=== PATIENT | male | born 1975 | race Two or more races ===

== ENCOUNTER 2016-11-13 06:42 | Emergency (ER) | payer MEDICAID ==
--- NOTE | 2016-11-13 06:47 | EDPHY ---
H & P Time Seen by Provider: 11/13/16 06:46 HPI/ROS: CHIEF COMPLAINT: I fell down HISTORY OF PRESENT ILLNESS: Patient was recently at detox for 6 days for cocaine and heroin. Currently homeless. He says he was walking today pulling his large roller suitcase when he got lightheaded and fell down. Only complaint per EMS was that he called dispatch because he "could not talk." Pre- hospital glucose was 105. The patient tells me he thinks he might have blacked out. He does not remember falling. He remembers getting lightheaded and then waking up on the ground. He says that he injured his back and complains of back from his neck all the way through his tailbone. This is not associated with weakness or numbness in extremities. REVIEW OF SYSTEMS: Eye: no change in vision ENT: no sore throat Cardiac: No chest pain Pulmonary: no cough or SOB Abdomen: no vomiting, diarrhea, abdominal pain Musculoskeletal: HPI Skin: no rash Neuro: no headache Constitutional: no fever : no urinary symptoms A comprehensive 10 point review of systems is otherwise negative aside from elements mentioned in the history of present illness. PAST MEDICAL HISTORY: "Psychological problems "the patient has difficulty elaborating on that details. However with further questioning he says he has bipolar disorder not on medication. Social history: Heavy marijuana smoker General Appearance: Alert and conversant, cooperative. Eyes: No scleral icterus. ENT, Mouth: Normal mucous membranes. No tongue laceration or abrasion. Respiratory: Normal respiratory effort, breath sounds equal, lungs are clear to auscultation. Cardiovascular: Regular rate and rhythm. No murmur. Gastrointestinal: Abdomen is soft and non tender. Neurological: Alert and oriented x3. Normally conversant. Face symmetric, normal movement and sensation in all extremities. Skin: Warm and dry, no rashes. Musculoskeletal: No extremity tenderness. He has midline tenderness in the lower C-spine all the way through his tailbone. However when I set him up he starts crying and shaking in the exam is difficult to conduct. Psychiatric: Denies suicidal or homicidal ideation. Not hallucinating. Very distractible. Emergency Department course/MDM: EKG, chemistries, imaging of his spine. 719: Cervical spine CT per Dr. Joy shows no evidence of acute traumatic injury. 855: Cervical spine cleared clinically, results discussed with the patient, he is watching a video on his smart phone. Stable for discharge. Likely vasovagal syncope with back injury which is not medically or surgically emergent. Constitutional: Initial Vital Signs Temperature (C) 36.7 C 11/13/16 06:45 Heart Rate 112 H 11/13/16 06:45 Respiratory Rate 18 11/13/16 06:45 Blood Pressure 135/91 H 11/13/16 06:45 O2 Sat (%) 93 11/13/16 06:45 O2 Delivery Mode Room Air Allergies/Adverse Reactions: No Known Allergies Allergy (Unverified 11/13/16 06:54) Home Medications: Medication Instructions Recorded NK [No Known Home Meds] 11/13/16 Medical Decision Making - Diagnostics EKG Interpretation: 12-lead EKG interpreted by me; official reading is in trace master. My interpretation is sinus rhythm rate 95 with left atrial abnormality otherwise normal. Imaging Results: Thoracic and lumbar spine x-rays personally interpreted as negative for trauma. Differential Diagnosis: Differential diagnosis considered for syncope including but not limited to vasovagal syncope, arrhythmia, dehydration, and blood loss. - Data Points Laboratory Results: Laboratory Results 11/13/16 07:25 11/13/16 07:25 11/13/16 11/13/16 07:25 07:25 WBC 13.63 10^3/uL H 10^3/uL (3.80-9.50) RBC 5.15 10^6/uL 10^6/uL (4.40-6.38) Hgb 15.2 g/dL g/dL (13.7-17.5) Hct 45.9 % % (40.0-51.0) MCV 89.1 fL fL (81.5-99.8) MCH 29.5 pg pg (27.9-34.1) MCHC 33.1 g/dL g/dL (32.4-36.7) RDW 12.2 % % (11.5-15.2) Plt Count 238 10^3/uL 10^3/uL (150-400) MPV 9.4 fL fL (8.7-11.7) Neut % (Auto) 72.9 % % (39.3-74.2) Lymph % (Auto) 17.8 % % (15.0-45.0) [place] % (Auto) 5.8 % % (4.5-13.0) Eos % (Auto) 0.5 % L % (0.6-7.6) Baso % (Auto) 1.1 % % (0.3-1.7) Nucleat RBC Rel Count 0.0 % % (0.0-0.2) Absolute Neuts (auto) 9.93 10^3/uL H 10^3/uL (1.70-6.50) Absolute Lymphs (auto) 2.43 10^3/uL 10^3/uL (1.00-3.00) Absolute Monos (auto) 0.79 10^3/uL 10^3/uL (0.30-0.80) Absolute Eos (auto) 0.07 10^3/uL 10^3/uL (0.03-0.40) Absolute Basos (auto) 0.15 10^3/uL H 10^3/uL (0.02-0.10) Absolute Nucleated RBC 0.00 10^3/uL 10^3/uL (0-0.01) Immature Gran % 1.9 % H % (0.0-1.1) Immature Gran # 0.26 10^3/uL H 10^3/uL (0.00-0.10) Sodium 138 mEq/L mEq/L (134-144) Potassium 4.7 mEq/L mEq/L (3.5-5.2) Chloride 105 mEq/L mEq/L (97-110) Carbon Dioxide 19 mEq/l L mEq/l (22-31) Anion Gap 14 mEq/L mEq/L (8-16) BUN 12 mg/dL mg/dL (7-23) Creatinine 0.8 mg/dL mg/dL (0.7-1.3) Estimated GFR > 60 Glucose 94 mg/dL mg/dL (70-100) Calcium 10.2 mg/dL mg/dL (8.5-10.4) Creatine Kinase 37 IU/L IU/L (0-224) Departure - Departure Disposition: Home, Routine, Self-Care Clinical Impression: Syncope and collapse Back pain Qualifiers: Back pain location: low back pain Chronicity: acute Back pain laterality: midline Sciatica presence: without sciatica Qualified Code(s): M54.5 - Low back pain Condition: Good Instructions: Syncope (ED), Acute Low Back Pain (ED) Referrals: [facility],. [Clinic] - As per Instructions
[2016-11-13 06:54] VITALS: TEMP 98.1
[2016-11-13 07:32] LABS: % IMMATURE GRANULYOCYTES 1.9 % (0.0-1.1); ABSOLUTE IMMATURE GRANULOCYTES 0.26 10^3/uL (0.00-0.10); ADD DIFF? NO; ADD MORPH? NO; ADD SCAN? NO; ATYPICAL LYMPHOCYTE FLAG 20 (0-99); FRAGMENT RBC FLAG 0 (0-99); HEMATOCRIT 45.9 % (40.0-51.0); HEMOGLOBIN 15.2 g/dL (13.7-17.5); LEFT SHIFT FLG 10 (0-99); LIPEMIA HEMOLYSIS FLAG 80 (0-99); MEAN CELL HEMOGLOBIN 29.5 pg (27.9-34.1); MEAN CELL HEMOGLOBIN CONCENTR. 33.1 g/dL (32.4-36.7); MEAN CELL VOLUME 89.1 fL (81.5-99.8); MEAN PLATELET VOLUME 9.4 fL (8.7-11.7); PLATELET CLUMPS FLAG 40 (0-99); PLATELET COUNT 238 10^3/uL (150-400); RED BLOOD CELL COUNT 5.15 10^6/uL (4.40-6.38); RED CELL DISTRIBUTION WIDTH 12.2 % (11.5-15.2)
--- NOTE | 2016-11-13 07:57 | CPEKG ---
Heart Rate: 95 RR Interval: 632 P-R Interval: 136 QRSD Interval: 82 QT Interval: 344 QTC Interval: 433 P [place]: 74 QRS [place]: 76 T Wave [place]: 49 EKG Severity - ABNORMAL ECG - EKG Impression: SINUS RHYTHM EKG Impression: LEFT ATRIAL ABNORMALITY Electronically Signed By: Khanh Duncan 13-Nov-2016 08:14:05
[2016-11-13 08:41] LABS: ANION GAP 14 mEq/L (8-16); CALCIUM 10.2 mg/dL (8.5-10.4); CARBON DIOXIDE 19 mEq/l (22-31); CHLORIDE 105 mEq/L (97-110); CREATININE 0.8 mg/dL (0.7-1.3); GLOMERULAR FILTRATION RATE > 60; GLUCOSE 94 mg/dL (70-100); POTASSIUM 4.7 mEq/L (3.5-5.2); SODIUM 138 mEq/L (134-144)
[2016-11-13 09:06] VITALS: BP 132/84; PULSE 104; RESP 16; O2SAT 96
== END 2016-11-13 09:06 | disposition home or self-care (01) ==
LOC: EDUNIT#
DX: S39.92XA Unspecified injury of lower back, initial encounter (principal); R55 Syncope and collapse; W18.39XA Other fall on same level, initial encounter; Y99.8 Other external cause status; Y93.01 Activity, walking, marching and hiking

== ENCOUNTER 2017-06-06 08:32 | Emergency (ER) | payer MEDICAID ==
[2017-06-06] MEDS ORDERED: NS 1,000 ML IV ONE (09:44)
[2017-06-06] MEDS ORDERED: ONDANSETRON 4 MG/2 ML VIAL IVP ONE (09:44)
[2017-06-06] MEDS ORDERED: HYDROmorphONE/DILAUDID 2 MG/ML INJ IVP ONE (09:44)
--- NOTE | 2017-06-06 09:44 | EDPHY ---
H & P Time Seen by Provider: 06/06/17 08:50 HPI/ROS: Chief complaint. Back pain and sciatica HPI. 42-year-old male presents emergency department with 2 day history of low back pain. He does have a history of low back pain is had previous cortisone injections but no surgery. 2 days ago at work he felt a click in his left low back. It has continued and now today he has weakness to both legs and feels that they want support his weight. He has pain radiating down the backs of both eyes. He feels he has decreased sensation. No bowel symptoms. He is able to control his urine but has a strong urine smell. While he has had low back pain in the past he has not had leg weakness previously. He has been using IV heroin for the past month and a half. He does not think he has been running a fever. No chest discomfort or trouble breathing. ROS Constitutional. no fever/chills, no weakness Eyes. no problems with vision ENT. no sore throat, no nasal drainage Cardiovascular. no chest pain Respiratory. no shortness of breath, no cough Abdominal. no abdominal pain, no nausea/vomiting, no diarrhea . Strong urine smell MS. Low back pain with sciatica and leg weakness Skin. no rash Lymph. no swollen glands Neuro. Difficulty walking secondary to back pain and leg weakness Past Medical/Surgical History: Low back pain, bipolar, alcoholism, IVDA Social History: Single, daily smoker, no recent alcohol Smoking Status: Heavy smoker Physical Exam: General Appearance: Alert well-developed male mild distress vital signs stable Eyes: Pupils equal and round no pallor or injection. ENT, Mouth: Mucous membranes are moist. Respiratory: There are no retractions, lungs are clear to auscultation. Cardiovascular: Regular rate and rhythm. Gastrointestinal: Abdomen is soft and nontender, no masses, bowel sounds normal. Neurological: Awake and alert, sensory and motor exams grossly normal. Deep tendon reflexes decreased on the right normal on the left. Great toe strength present but maybe bilaterally somewhat weak. Diffuse altered sensation but not particular saddle anesthesia Skin: Warm and dry, no rashes. Musculoskeletal: Neck is supple nontender. No thoracic discomfort. He has lower lumbar disc diffuse discomfort. No surface swelling or erythema. Extremities symmetrical, full range of motion. Psychiatric: Patient is oriented X 3, there is no agitation. Constitutional: Initial Vital Signs Temperature (C) 37 C 06/06/17 08:35 Heart Rate 78 06/06/17 08:35 Respiratory Rate 16 06/06/17 08:35 Blood Pressure 143/89 H 06/06/17 08:35 O2 Sat (%) 98 06/06/17 08:35 O2 Delivery Mode Room Air Allergies/Adverse Reactions: No Known Allergies Allergy (Unverified 11/13/16 06:54) Home Medications: Medication Instructions Recorded predniSONE 40 mg PO DAILY #8 tablet 06/06/17 Medical Decision Making - Diagnostics Imaging Results: Imaging Impressions Orbit X-Ray 06/06/17 10:35 Impression: Patient is clear for MRI. MRI of the lumbar spine shows no evidence for abscess. No evidence for cauda equina syndrome. 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 Procedures: IV normal saline. Dilaudid for pain. ED Course/Re-evaluation: On re-evaluation patient does have slightly wide gait. He is able to walk however I consulted and discussed the case with Dr. Meeks who reviewed the patient's MRI. He recommends Medrol Dosepak and follow up in the office. He does not feel further workup is necessary in the emergency department Prior to my re-evaluation of the patient 1:25 p.m. The patient is found to be injecting heroin in the bathroom. He tried to get the help of his IV apart for access and there is brown substance in the IV. [place] [employer] is called At 1:25 p.m. I discussed the imaging studies with the patient. We discussed treatment plan including criteria for return and recommendation for follow-up and further evaluation. He expresses understanding and agreement Differential Diagnosis: I considered cauda equina syndrome. As he is an IV drug abuser I considered epidural abscess as well. This appears to be herniated disc but no evidence for abscess or cauda equina syndrome - Data Points Laboratory Results: Laboratory Results 06/06/17 10:50 06/06/17 10:50 06/06/17 06/06/17 10:50 10:50 WBC 10.02 10^3/uL H 10^3/uL (3.80-9.50) RBC 5.18 10^6/uL 10^6/uL (4.40-6.38) Hgb 15.5 g/dL g/dL (13.7-17.5) Hct 45.5 % % (40.0-51.0) MCV 87.8 fL fL (81.5-99.8) MCH 29.9 pg pg (27.9-34.1) MCHC 34.1 g/dL g/dL (32.4-36.7) RDW 12.3 % % (11.5-15.2) Plt Count 266 10^3/uL 10^3/uL (150-400) MPV 9.2 fL fL (8.7-11.7) Neut % (Auto) 70.9 % % (39.3-74.2) Lymph % (Auto) 20.5 % % (15.0-45.0) [place] % (Auto) 7.3 % % (4.5-13.0) Eos % (Auto) 0.2 % L % (0.6-7.6) Baso % (Auto) 0.8 % % (0.3-1.7) Nucleat RBC Rel Count 0.0 % % (0.0-0.2) Absolute Neuts (auto) 7.11 10^3/uL H 10^3/uL (1.70-6.50) Absolute Lymphs (auto) 2.05 10^3/uL 10^3/uL (1.00-3.00) Absolute Monos (auto) 0.73 10^3/uL 10^3/uL (0.30-0.80) Absolute Eos (auto) 0.02 10^3/uL L 10^3/uL (0.03-0.40) Absolute Basos (auto) 0.08 10^3/uL 10^3/uL (0.02-0.10) Absolute Nucleated RBC 0.00 10^3/uL 10^3/uL (0-0.01) Immature Gran % 0.3 % % (0.0-1.1) Immature Gran # 0.03 10^3/uL 10^3/uL (0.00-0.10) Sodium 139 mEq/L mEq/L (135-145) Potassium 4.7 mEq/L mEq/L (3.5-5.2) Chloride 102 mEq/L mEq/L (97-110) Carbon Dioxide 20 mEq/l L mEq/l (22-31) Anion Gap 17 mEq/L H mEq/L (8-16) BUN 13 mg/dL mg/dL (7-23) Creatinine 0.7 mg/dL mg/dL (0.7-1.3) Estimated GFR > 60 Glucose 113 mg/dL H mg/dL (70-100) Calcium 9.3 mg/dL mg/dL (8.5-10.4) Medications Given: Discontinued Medications Hydromorphone HCl (Dilaudid) 1 mg IVP EDNOW ONE Stop: 06/06/17 09:45 Last Admin: 06/06/17 11:46 Dose: 1 mg Sodium Chloride (Ns) 1,000 mls @ 0 mls/hr IV EDNOW ONE; Wide Open PRN Reason: Protocol Stop: 06/06/17 09:45 Last Admin: 06/06/17 11:45 Dose: 1,000 mls Ondansetron HCl (Zofran) 4 mg IVP EDNOW ONE Stop: 06/06/17 09:45 Last Admin: 06/06/17 11:46 Dose: 4 mg Departure - Departure Disposition: Law Enforcement/Court/[facility] Clinical Impression: Back pain at L4-L5 level, Sciatica associated with disorder of lumbar spine Condition: Good Instructions: Sciatica (ED), Lumbar Radiculopathy (ED) Additional Instructions: Tylenol 6 1000 mg every 4-6 hours for discomfort Prednisone to help with back pain. Return for worsening leg weakness, bowel or bladder symptoms. Follow up with neurosurgeon. Referrals: Patient,NotPresent [Unknown] - As per Instructions Matt Ulloa MD [Medical Doctor] - As per Instructions Prescriptions: predniSONE 40 mg PO DAILY #8 tablet
[2017-06-06 11:04] LABS: PLATELET COUNT 266 10^3/uL (150-400)
[2017-06-06] MEDS ORDERED: GADOBUTROL 10 ML VIAL IVP ONE (12:04)
[2017-06-06 14:17] VITALS: BP 141/99
== END 2017-06-06 14:16 ==
LOC: EDUNIT#
DX: M54.41 Lumbago with sciatica, right side (principal); F17.200 Nicotine dependence, unspecified, uncomplicated; E86.9 Volume depletion, unspecified
CPT/HCPCS: 96374; A9585; J1170; J2405